=== PATIENT | female | born 1965 | race Two or more races ===

== ENCOUNTER → 2023-04-14 | Outpatient (CLI) | payer OTHER ==
[~2023-04-14] MED LIST: ATACAND4 MG; PRILOSEC10 MG; TOPROL XL25 M1; ZANTAC150 MG
== END | disposition home or self-care (01) ==
LOC: RAD 07:38
PROVIDERS: ATTEND Internal Medicine Rheumatology
DX: M50.80 Other cervical disc disorders, unspecified cervical region (principal)